=== PATIENT | male | born 1985 | race Caucasian/White ===

== ENCOUNTER 2022-10-02 18:18 | Emergency (ER) | payer SELFPAY ==
[~2022-10-02] VITALS: Ht 182.9 cm; Wt 151.4 kg
[2022-10-02 18:25] VITALS: BP 124/89; TEMP 97.7
[2022-10-02 19:33] LABS: BASO # 0.1 K/mm3 (0.0-0.2); BASO % 0.4 % (0.0-2.0); EOS # 0.1 K/mm3 (0.0-0.7); EOS % 1.1 % (0.0-4.0); GRAN # 9.3 K/mm3 (1.4-6.5); GRAN % 77.1 % (42.2-75.2); HEMATOCRIT 44.1 % (42.0-52.0); HEMOGLOBIN 14.2 g/dl (13.5-18.0); LYMPH # 1.8 K/mm3 (1.2-3.4); LYMPH % 14.5 % (20.0-51.0); MEAN CELL VOLUME 90 fl (80.0-100.0); MEAN CORPUSCULAR HEMOGLOBIN 29 pg (27-31); MEAN CORPUSCULAR HGB CONC 32 g/dl (33.0-37.0); MONO # 0.8 K/mm3 (0.1-0.6); MONO % 6.6 % (1.7-9.3); PLATELET COUNT 225 K/mm3 (130-400); RED BLOOD COUNT 4.89 M/mm3 (4.20-5.60); REDCELL DISTRIBUTION WIDTH-CV 13.4 % (11.5-14.5)
[2022-10-02] MEDS ORDERED: ELIQUIS 5MG PO (19:38)
[2022-10-02 19:52] LABS: ALBUMIN 3.9 gm/dL (3.5-5.0); BILIRUBIN,TOTAL 0.4 mg/dL (0.2-1.2); CALCIUM 10.4 mg/dL (8.4-10.2); CREATININE, serum 1.15 mg/dL (0.72-1.25); POTASSIUM 4.2 mmol/L (3.5-4.5); TOTAL PROTEIN 8.3 gm/dL (6.2-8.1)
[2022-10-02 20:24] VITALS: PULSE 77
== END 2022-10-02 20:26 | disposition home or self-care (01) ==
LOC: COL.ER 18:18
PROVIDERS: Nurse Practitioner
DX: M79.672 Pain in left foot (principal); I48.91 Unspecified atrial fibrillation; Z87.891 Personal history of nicotine dependence; Z79.01 Long term (current) use of anticoagulants; Z28.310 Unvaccinated for COVID-19

== ENCOUNTER → 2022-10-04 | Outpatient (CLI) | payer SELFPAY ==
[~2022-10-04] MED LIST: ELIQUIS 5MG PO
== END ==
LOC: COL.VAS 06:05
DX: M79.672 Pain in left foot (principal)

== ENCOUNTER 2023-07-09 02:10 | Emergency (ER) | payer OTHER ==
[~2023-07-09 02:10] MED LIST changes: +ASPIRIN 81M81 MG/TA2 PO; +KEPPRA750 MG PO; +LAMICTAL 25MG T25 MG PO; +LATUDA20 MG PO; +PERCOCET 325 MG1 TA3 PO; +PLAVIX 75MG TAB75 MG PO
[2023-07-09 02:17] VITALS: TEMP 97.8
[2023-07-09 02:50] LABS: BASO # 0.1 K/mm3 (0.0-0.2); BASO % 0.5 % (0.0-2.0); EOS # 0.2 K/mm3 (0.0-0.7); EOS % 1.9 % (0.0-4.0); GRAN # 6.4 K/mm3 (1.4-6.5); GRAN % 64.1 % (42.2-75.2); HEMATOCRIT 40.4 % (42.0-52.0); HEMOGLOBIN 13.7 g/dl (13.5-18.0); LYMPH # 2.3 K/mm3 (1.2-3.4); LYMPH % 23.2 % (20.0-51.0); MEAN CELL VOLUME 88 fl (80.0-100.0); MEAN CORPUSCULAR HEMOGLOBIN 30 pg (27-31); MEAN CORPUSCULAR HGB CONC 34 g/dl (33.0-37.0); MEAN PLATELET VOLUME 9.7 fl (7.4-10.4); MONO % 9.6 % (1.7-9.3); PLATELET COUNT 205 K/mm3 (130-400); RED BLOOD COUNT 4.57 M/mm3 (4.20-5.60); REDCELL DISTRIBUTION WIDTH-CV 13.7 % (11.5-14.5)
[2023-07-09 02:54] LABS: INR 1.1 (0.8-3.0); PROTHROMBIN TIME 11.8 SECONDS (9.7-12.8)
[2023-07-09 03:10] LABS: ALBUMIN 3.6 gm/dL (3.5-5.0); BILIRUBIN,TOTAL 0.2 mg/dL (0.2-1.2); CALCIUM 9.1 mg/dL (8.4-10.2); CREATININE, serum 1.1 mg/dL (0.72-1.25); POTASSIUM 3.8 mmol/L (3.5-4.5); TOTAL PROTEIN 6.2 gm/dL (6.2-8.1)
[2023-07-09] MEDS ORDERED: ZITHROMAX Z PA250 MG PO (03:14)
[2023-07-09 03:28] VITALS: BP 127/83; PULSE 77
== END 2023-07-09 03:28 | disposition home or self-care (01) ==
LOC: COL.ER 02:10
PROVIDERS: Family Medicine
DX: R04.2 Hemoptysis (principal); F17.210 Nicotine dependence, cigarettes, uncomplicated; Z79.82 Long term (current) use of aspirin; Z79.02 Long term (current) use of antithrombotics/antiplatelets; Z87.19 Personal history of other diseases of the digestive system; Z88.0 Allergy status to penicillin